=== PATIENT | male | born 1950 | race Caucasian/White ===

== ENCOUNTER → 2018-07-14 | Outpatient (CLI) | payer OTHER, MEDICARE ==
[~2018-07-14] MED LIST: ASPI-482 PO; CHOL500016 PO; CRESTOR10 MG PO; DULA1.5P SQ; FINA5TAB4 PO; FLUT100D IH; GABA300C18 PO; GLIM4TAB2 PO; INSU100I32 SQ; LEVO50TA5 PO; LISI-338 PO; MAGN400C PO; METF10007 PO; MULT1TAB52 PO; PANT40TA77 PO; RAMI10CA53 PO; SITA1TAB11 PO; TAMS0.4C2 PO; TAMS0.4C97 PO
--- NOTE | 2018-07-14 09:17 | KCIC ---
MRI of the lumbar spine without contrast 07/14/2018 CLINICAL HISTORY: Chronic low back pain. Bilateral leg numbness. TECHNIQUE: Unenhanced T1-weighted, T2-weighted and inversion recovery sagittal and T1-weighted and T2-weighted axial images of the lumbar spine were obtained. FINDINGS: Minimal S-shaped curvature of the thoracolumbar spine is seen. Degenerative signal changes are seen involving the L2-3, L3-4, L4-5 and L5-S1 discs. Degenerative signal changes are seen within the marrow surrounding these discs. A 1.3 cm hemangioma is seen involving the L2 vertebral body. The conus medullaris is normal morphology, position, and signal characteristics. The L1-2 disc space is within normal limits. At the L2-3 disc space there is a mild generalized disc bulge. Superimposed on this disc bulge is a focal central disc protrusion. This measures 2 mm in AP diameter. Degenerative changes are seen involving the facet joints bilaterally. There is mild ligamentum flavum hypertrophy bilaterally. These findings when combined do not result in significant central spinal canal or neural foraminal stenosis. At the L3-4 disc space there is a mild to moderate generalized disc bulge. Superimposed on this disc bulge is a left paracentral disc osteophyte complex. This measures 4 mm in AP diameter. Degenerative changes are seen involving the facet joints bilaterally. There is mild ligamentum flavum hypertrophy bilaterally. There is prominence of the posterior epidural fat. These findings when combined result in mild central spinal canal stenosis. Mild left neural foraminal stenosis is seen. The right neural foramen is patent. At the L4-5 disc space there is a mild to moderate generalized disc bulge. This is eccentric to the right. Degenerative changes are seen involving the facet joints, right greater than left. There are small facet joint effusions. Mild ligamentum flavum hypertrophy is seen bilaterally. There is prominence of the posterior epidural fat. These findings when combined result in mild central spinal canal stenosis. Moderate to severe right neural foraminal stenosis is seen. The left neural foramen is patent. At the L5-S1 disc space there is a mild to moderate generalized disc bulge. This is eccentric to the left. Degenerative changes are seen involving the facet joints bilaterally. These findings when combined do not result in significant central spinal canal or neural foraminal stenosis. IMPRESSION: The changes of degenerative disc disease are seen throughout the lumbar spine. These findings result in mild central spinal canal stenosis at L3-4 and L4-5. Mild left neural foraminal stenosis is seen at L3-4. Moderate to severe right neural foraminal stenosis is seen at L4-5. Electronically signed by: Jose Cano MD (07/14/2018 9:13 AM) [email or web address]
== END | disposition home or self-care (01) ==
LOC: KCIC MRI 08:14
PROVIDERS: ATTEND Physician Assistant Medical
DX: M51.36 Other intervertebral disc degeneration, lumbar region (principal); M48.061 Spinal stenosis, lumbar region without neurogenic claudication; M47.816 Spondylosis without myelopathy or radiculopathy, lumbar region; M25.78 Osteophyte, vertebrae
CPT/HCPCS: 72148

== ENCOUNTER → 2018-08-21 | Outpatient (CLI) | payer OTHER, MEDICARE ==
[~2018-08-21] MED LIST changes: +PANT40TA5 PO; -PANT40TA77 PO; -TAMS0.4C97 PO
--- NOTE | 2018-08-21 10:37 | KCIC ---
MRI of the cervical spine without contrast 08/21/2018 CLINICAL HISTORY: Neck pain with bilateral leg numbness and unsteady gait. TECHNIQUE: Unenhanced T1-weighted, T2-weighted and inversion recovery sagittal and gradient echo and T2-weighted axial images of the cervical spine were obtained. FINDINGS: There is straightening of the normal cervical lordosis. Degenerative signal changes are seen involving all of the disks of the cervical spine. Loss of height of the C5-6 and C6-7 discs is noted. Degenerative signal changes are seen within the marrow surrounding these discs. No area of abnormal signal intensity is seen involving the cervical spinal cord. At the C2-3 disc space there is a minimal generalized disc bulge. Degenerative changes are seen involving the uncovertebral and facet joints, right greater than left. These findings when combined do not result in significant central spinal canal or neural foraminal stenosis. At the C3-4 disc space there is a mild generalized disc bulge. Degenerative changes are seen involving the uncovertebral and facet joints, right greater than left. These findings do not result in significant central spinal canal stenosis. Mild right neural foraminal stenosis is seen. The left neural foramen is patent. At the C4-5 disc space there is a mild generalized disc bulge. Degenerative changes are seen involving the uncovertebral and facet joints, left greater than right. These findings when combined do not result in significant central spinal canal stenosis no neural foraminal stenosis is seen. At the C5-6 disc space there is a mild to moderate generalized disc bulge. Superimposed on this disc bulge is a focal central disc protrusion. This measures 3 mm in AP diameter. Degenerative changes are seen involving the uncovertebral and facet joints, right greater than left. These findings when combined efface the anterior CSF resulting in mild central spinal canal stenosis without evidence of cord impingement. Mild to moderate right neural foraminal stenosis is seen. The left neural foramen is patent. At the C6-7 disc space there is a mild to moderate generalized disc bulge. This is eccentric to the left. Degenerative changes are seen involving the uncovertebral and facet joints, left greater than right. These findings when combined efface the anterior CSF resulting in mild central spinal canal stenosis without evidence of cord impingement. Moderate left neural foraminal stenosis is seen. The right neural foramen is patent. At the C7-T1 disc space there is a minimal generalized disc bulge. Degenerative changes are seen involving the facet joints bilaterally. These findings do not result in significant central spinal canal or neural foraminal stenosis. IMPRESSION: Degenerative changes are seen involving the cervical spine. These findings result in mild central spinal canal stenosis at C5-6 and C6-7 without evidence of cord impingement. Mild right neural foraminal stenosis is seen at C3-4. Mild to moderate right neural foraminal stenosis is seen at C5-6. Moderate left neural foraminal stenosis is seen at C6-7. Electronically signed by: Jose Cano MD (08/21/2018 10:35 AM) [email or web address]
== END | disposition home or self-care (01) ==
LOC: KCIC MRI 08:55
PROVIDERS: ATTEND Neurological Surgery
DX: M47.892 Other spondylosis, cervical region (principal); M48.02 Spinal stenosis, cervical region; M50.222 Other cervical disc displacement at C5-C6 level
CPT/HCPCS: 72141

== ENCOUNTER → 2018-08-27 | Outpatient (CLI) | payer OTHER, MEDICARE ==
--- NOTE | 2018-08-27 22:09 | PAIN ---
DATE OF SERVICE: 08/27/2018 CHIEF COMPLAINT: Low back pain. HISTORY OF PRESENT ILLNESS: The patient is a 68-year-old male who presents with history of pain for about 8 years in the low back itself, occasionally spreading into the posterior gluteus, but generally not radiating to the lower extremities, just in the back itself. The patient reports it is worse with standing, walking, especially sitting for prolonged periods, changing positions, bending backwards or extending in his spine. The patient reports it awakens him from sleep at least twice a night, does not affect his bowel or bladder control, but does affect his ability to walk. He feels unstable and uses a cane occasionally, but does not have it with him today. The patient reports he has had physical therapy in the past, chiropractic treatment as well. He is using an inversion table currently and some traction techniques at home also, some traction devices he got from the Physical Therapy office about a month ago with a rotational stool that he sits on which helps the back pain temporarily. The patient has also tried prednisone, which does decrease the pain, but increase his blood sugar significantly. Also, ibuprofen and he has had some epidural injections many years ago, which were not significantly helpful. The patient reports his disability rate from 0-10, 10 being the worst, at 9 with family and home responsibilities and sexual behavior; 10 with recreation, social activity and occupation behavior; 3 with self-care and 0 with life support activities. The patient did have an MRI scan of the lumbar spine showing advanced degenerative disk disease throughout the lumbar spine with mild central spinal canal stenosis at L3-L4 and L4-L5 with mild left neural foraminal stenosis at L3-L4 and [id number] right neural foraminal stenosis at L4-L5. The patient reports no loss of motor function, but significant fatigability in both of the lower extremities with ambulation especially and with sitting for long periods, greater than 15-20 minutes. The patient also reports he supports his body with his arms on the kitchen counter to get the pressure off his low back and this helps the back as well. The patient reports it is much worse with extension of the lumbar spine and axial loading in the low back, better with forward flexion; right and left lateral rotation is moderately tender bilaterally in each direction in the lower back again with no radiation to the lower extremities. PAST MEDICAL HISTORY: Significant for hearing loss, diabetes type 2, COPD, sleep apnea, hypertension, gastroesophageal reflux, headaches, dizziness, depression, arthritis. PREVIOUS SURGERY: Include bilateral shoulder surgery, tonsillectomy, carpal tunnel release on the right, sinus surgery, wisdom teeth extraction and a torn Achilles, which did not require surgery in the past. CURRENT MEDICATIONS: Include daily baby aspirin, ramipril, metformin, glimepiride, levothyroxine, pantoprazole, Crestor, finasteride and tamsulosin. ALLERGIES: The patient has no known drug allergies. FAMILY HISTORY: Significant for heart disease. SOCIAL HISTORY: The patient does not drink alcohol; does not smoke; does not use any illegal, illicit or recreational drugs. He is and lives with his spouse, lives locally in [place], [place] and is currently retired. REVIEW OF SYSTEMS: The patient's review of systems is positive for those items mentioned in history of present illness. All systems reviewed and otherwise negative. It is complete, full and well documented on the patient's chart. PHYSICAL EXAMINATION: VITAL SIGNS: The patient's blood pressure is 136/88, pulse 79, respirations 16, temperature 98.2 degrees Fahrenheit, height is 5 feet 11-3/4 inches and weight is 245 pounds. GENERAL: The patient is awake, alert, oriented, appropriate, very pleasant demeanor. HEENT: Head is normocephalic and atraumatic. Extraocular movements are intact and symmetrical. Oral cavity: Mucous membranes moist and pink. Dentition is intact. NECK: Shows anterior throat supple without palpable lymphadenopathy noted. Swallow reflex symmetrical. CHEST: Shows normal with inspection. Breath sounds clear to auscultation bilaterally. HEART: Shows S1, S2 clear. No murmurs auscultated. ABDOMEN: Soft, obese, nontender, nondistended. No palpable organomegaly is noted. No rebound or guarding demonstrated. BACK: Shows spine grossly in the midline, normal-appearing cervical lordotic curvature, thoracic kyphotic curvature and lumbar lordotic curvature. Lumbar paraspinous muscle shows symmetrical on inspection; on palpation shows some moderate tenderness throughout the upper, middle, lower distribution of paraspinous muscles, but only diffusely without radiation. The patient shows no tenderness over the sacrum or sacroiliac regions or the spinous processes. The patient has good rotational motion of lumbar spine with moderate tenderness with right and left lateral rotation past 10 degrees with significant tenderness with extension of the lumbar spine and axial loading low back 10 degrees, forward flexion 45 degrees decreases his pain moderately, but not completely and is performed without difficulty. EXTREMITIES: The patient's lower extremities show deep tendon reflexes at 2+ in the patellar, 1+ tendo calcaneus tendons. Motor exam is strong with 5/5 dorsiflexion and extension, quadriceps and hamstring flexion and symmetrical. Peripheral pulses are 1+ posterior tibia. No peripheral edema is noted bilaterally. Straight leg raise noted to be negative for reproduction of radicular symptoms. Gaenslen's and Wilfred's maneuvers are negative bilaterally as well. The patient is able to stand, stand on his toes and has some difficulty getting up from seated position secondary to pain in the low back with axial loading of the lumbar spine once again. The patient is walking with a slight shuffling gait, does not appear to favor the right or left lower extremity significantly, not using any assistive devices currently, but does use a cane he reports at home. SKIN: Warm and dry, good turgor. No edema. No sores, rashes or bruising. IMPRESSION: This is a 68-year-old male with: 1. Long history of 8 years of low back pain increased with axial loading and pressure in the low back consistent with lumbar facet syndrome pain. 2. Hypertension. 3. Diabetes. 4. Arthritis. 5. Chronic obstructive pulmonary disease. PLAN: Options were discussed with the patient and the patient's spouse who accompanied him to his visit today including conservative medical management, continued physical therapy, interventional techniques and he is doing physical therapy already and doing exercises on his own as well as using an inversion table and traction techniques. He would like to pursue interventional techniques. We discussed lumbar facet joint injections using description as well as anatomical models to describe the procedure. We will wait for preauthorization from the patient's insurance provider. The patient would like to proceed with this. In the meantime, he will maintain with stretching and strengthening exercises and traction with inversion table and stretching techniques as well. The patient will return to clinic once approved. We will plan on bilateral L4-L5 and L5-S1 facet joint injections at that time. MADISON FONSECA MD DR: VARINDER/dylan JOB#: [id number] / [id number]
== END | disposition home or self-care (01) ==
LOC: PNCL 07:49
PROVIDERS: ATTEND Anesthesiology
DX: M51.36 Other intervertebral disc degeneration, lumbar region (principal); M48.061 Spinal stenosis, lumbar region without neurogenic claudication; E11.9 Type 2 diabetes mellitus without complications; J44.9 Chronic obstructive pulmonary disease, unspecified; G47.33 Obstructive sleep apnea (adult) (pediatric); I10 Essential (primary) hypertension; K21.9 Gastro-esophageal reflux disease without esophagitis; F41.8 Other specified anxiety disorders; Z82.49 Family history of ischemic heart disease and other diseases of the circulatory system
CPT/HCPCS: G0463

== ENCOUNTER → 2018-09-10 | Outpatient (CLI) | payer OTHER, MEDICARE ==
[~2018-09-10] MED LIST changes: +BUPIVACAINE MPF 0.25% 10 ML VIAL. ONE; +IOHEXOL 180 MG/ML 10 ML VIAL. ONE; +methylPREDNISolone ACETATE 40 MG/ML VIAL. ONE; +methylPREDNISolone ACETATE 80 MG/ML VIAL. ONE
--- NOTE | 2018-09-10 23:46 | PAIN ---
DATE OF SERVICE: 09/10/2018 DIAGNOSES: 1. Lumbar spondylosis and lumbosacral spondylosis. 2. Lumbar spinal stenosis and lumbar degenerative disk disease. HISTORY OF PRESENT ILLNESS: The patient is a 68-year-old male who returns for followup status post initial evaluation and preauthorization for bilateral lumbar facet joint injections. The patient has obtained this now and would like to proceed. The patient reports still pain across the low back, worse on the right than the left, but worse with walking, standing, change in positions, especially extension of the lumbar spine, aching, sharp at times, shooting at times into the bilateral gluteus. The patient reports it is an 8 on scale of 10 at its worst, 8 on average, 3 at its least and is an 8 today. The patient reports it does not awaken him from sleep, generally sleeps about 7-8 hours a night, better with sitting or lying down, but worse with walking, standing, especially with extension or when he first gets up in the morning, putting weight on his back. The patient reports no new motor or sensory deficits, no new bowel or bladder incontinence or other complaints. PHYSICAL EXAMINATION: VITAL SIGNS: The patient's blood pressure is 140/79, pulse 75, respirations 16, temperature 97.7 degrees Fahrenheit, height is 5 feet 11 inches, weighs 241 pounds. GENERAL: The patient is awake, alert, oriented, appropriate, very pleasant demeanor. HEENT: Head is normocephalic, atraumatic. Extraocular movements are intact and symmetrical. Oral cavity: Mucous membranes moist and pink. Dentition is intact. NECK: Shows anterior throat supple without palpable lymphadenopathy noted. Swallow reflex symmetrical. CHEST: Shows normal on inspection. Breath sounds clear to auscultation bilaterally. HEART: Shows S1, S2 clear. No murmurs auscultated. ABDOMEN: Soft, nontender, nondistended. No palpable organomegaly is noted. No rebound or guarding demonstrated. BACK: Shows spine grossly in the midline. Normal appearing thoracic kyphosis and some minor flattening of lumbar lordotic curvature. Lumbar paraspinous muscle shows symmetrical on inspection, on palpation shows some moderate tenderness in the low lumbar distribution bilaterally, but without significant radiation. The patient shows good rotational motion of lumbar spine, although significant tenderness with extension as well as right greater than left lateral rotation past 10 degrees. No significant pain with forward flexion at 45 degrees. EXTREMITIES: The patient's lower extremities show deep tendon reflexes 2+ in the patellar, 1+ tendo calcaneus tendons. Motor exam is strong with 5/5 dorsiflexion, extension, quadriceps and hamstring flexion is symmetrical. Peripheral pulses are 1+ posterior tibial. No peripheral edema is noted bilaterally. Options were discussed with the patient. The patient's old chart was reviewed as his current medication regimen updated. Current review of systems updated today as well. We will proceed with bilateral L4-L5 and L5-S1 facet joint injection today with fluoroscopic guidance. Risks were again discussed including, but not limited to bleeding, infection, possibility of epidural hematoma, subsequent neurological compromise, dural punctures, headaches, spinal cord and/or nerve damage, side effects of steroid medication and poor results regarding pain control. The patient understands and wished to proceed. The patient will return to clinic in approximately 2 weeks for followup. He was counseled on return appointment, activity level and side effects to be aware of. DIAGNOSES: Lumbar and lumbosacral spondylosis. PROCEDURE: Bilateral L4-L5 and L5-S1 facet joint injections under C-arm fluoroscopic guidance using sterile prep and drape with local anesthetic. MEDICATION INJECTED: A total of 120 mg Depo-Medrol plus total of 4 mL of 0.25% bupivacaine, a total of 2 mL of Isovue for contrast. CONDITION AT DISCHARGE: Stable. The patient tolerated the procedure well, had no complications. MADISON FONSECA MD DR: VARINDER/dylan JOB#: [id number] / [id number]
== END | disposition home or self-care (01) ==
LOC: PNCL 07:46
PROVIDERS: ATTEND Anesthesiology
DX: M47.817 Spondylosis without myelopathy or radiculopathy, lumbosacral region (principal); M51.36 Other intervertebral disc degeneration, lumbar region; M48.061 Spinal stenosis, lumbar region without neurogenic claudication
CPT/HCPCS: 64493; 64494; J1030; J1040; J3490; Q9965

== ENCOUNTER → 2018-09-24 | Outpatient (CLI) | payer OTHER, MEDICARE ==
[~2018-09-24] MED LIST changes: -BUPIVACAINE MPF 0.25% 10 ML VIAL. ONE; -IOHEXOL 180 MG/ML 10 ML VIAL. ONE; -methylPREDNISolone ACETATE 40 MG/ML VIAL. ONE; -methylPREDNISolone ACETATE 80 MG/ML VIAL. ONE
--- NOTE | 2018-09-24 23:13 | PAIN ---
DATE OF SERVICE: 09/24/2018 DIAGNOSIS: Lumbar and lumbosacral spondylosis with lumbar spinal stenosis and lumbar degenerative disk disease. HISTORY OF PRESENT ILLNESS: The patient is a 68-year-old male who returns for followup status post lumbar facet joint injection at L4-L5 and L5-S1 bilaterally. The patient returns reporting about 75% improvement initially for about the first week to week and a half, then about 50% improvement, still maintaining. The patient reports still the right side is worse than the left, but present bilaterally and the pain is returning now with activity, especially with extension of the lumbar spine and axial loading of the low back is the main complaint. Also, some right lateral rotation exacerbates the pain more than the left. The patient reports it is 8 on a scale of 10 at its worst, 5 on average, 2 at its least and is 2 today. The patient reports it is sharp, tight, cramping, tingling, worse with rotational movement, worse with prolonged sitting, prolonged standing, better with lying down, but does awaken him from sleep at night when she lies on his right side. The patient reports no new motor or sensory deficits. He was ambulating better, doing greater distances walking, doing household activities and traveling easier until the last week or so when the pain began to return, but again still about 50% improved overall. The patient reports no new motor or sensory deficits, no new bowel or bladder incontinence or other complaints. PHYSICAL EXAMINATION: VITAL SIGNS: The patient's blood pressure is 129/72, pulse 66, respirations 16, temperature is 98.0 degrees Fahrenheit, height is 5 feet 11 inches, weight is 243 pounds. GENERAL: The patient is awake, alert, oriented, appropriate, very pleasant demeanor. HEENT: Head is normocephalic, atraumatic. Extraocular movements intact and symmetrical. Oral cavity: Mucous membranes moist and pink. Dentition is intact. NECK: Shows anterior throat supple without palpable lymphadenopathy noted. Swallow reflex is symmetrical. CHEST: Shows normal on inspection. Breath sounds are clear to auscultation bilaterally. HEART: Shows S1, S2 clear. No murmurs auscultated. ABDOMEN: Soft, nontender, nondistended. No palpable organomegaly is noted. No rebound or guarding demonstrated. He is obese. BACK: Shows spine grossly in the midline. Normal-appearing thoracic kyphosis and lumbar lordotic curvature. Lumbar paraspinous muscle shows symmetrical on inspection, with palpation shows some moderate tenderness diffusely bilaterally, but only diffusely without radiation. The patient has good rotational motion with some moderate tenderness with right lateral rotation past 10 degrees as well as extension and axial loading, significant tenderness, more on the right than the left, but present bilaterally. This is decreased to a fair extent with forward flexion at 45 degrees, left lateral rotation at 10 degrees is moderately tender as well. EXTREMITIES: The patient's lower extremities show deep tendon reflexes 2+ in patellar and 1+ tendo calcaneus tendons. Motor exam is strong with 5/5 dorsiflexion and extension, quadricep and hamstring flexion equal as well. Peripheral pulses are 1+ posterior tibial. No peripheral edema is noted bilaterally. Options were discussed with the patient. The patient's old chart was reviewed as was his current medication regimen updated. Current review of systems updated today as well. We will proceed with preauthorization for additional L4-L5 and L5-S1 facet joint injections bilaterally. The patient did very well after the first set of injections with about 75% improvement for the first week and a half and now about 50% improvement overall until today which has been about 2 weeks ago. The patient will continue to do some strengthening and stretching exercises of the low back and extremities maintain activity as tolerated. We will have the patient return in approximately 1 week and plan on a repeat L4-L5 and L5-S1 facet joint injections at that time. MADISON FONSECA MD DR: VARINDER/dylan JOB#: [id number] / [id number]
--- NOTE | 2018-09-30 18:48 | PAIN ---
DATE OF SERVICE: 09/24/2018 DIAGNOSES: Lumbar and lumbosacral spondylosis, lumbar spinal stenosis, lumbar degenerative disk disease. HISTORY OF PRESENT ILLNESS: This is a 68-year-old male who returns for followup status post lumbar facet joint injection L4-L5 and L5-S1 bilaterally. The patient returns reporting about 85% improvement initially for about the first week to week and a half, then about 50% improvement, still maintaining that improvement. The patient reports still the right side is worse than the left, present bilaterally and the pain is returning now with activity, especially with extension of the lumbar spine and axial loading in the low back is the main complaint. The patient reports some right lateral rotation exacerbates the pain more than left, but it is an 8 on a scale of 10 at its worst, 5 on average, 2 at its least and is a 2 today. The patient reports it is sharp, tight, cramping, tingling, worse with rotational movement, worse with prolonged sitting, standing and better with lying down. The patient reports no new motor or sensory deficits. He was ambulating better, doing greater distances walking, household activities, traveling easier until the last week or so when the pain began to return. The patient reports no new deficits. PHYSICAL EXAMINATION: VITAL SIGNS: The patient's blood pressure is 129/72, pulse 66, respirations 16, temperature 98.0 degrees Fahrenheit, height is 5 feet 11 inches, weight is 243 pounds. GENERAL: The patient is awake, alert, oriented, appropriate, very pleasant demeanor. HEENT: Shows normocephalic, atraumatic. Extraocular movements are intact and symmetrical. Oral cavity: Mucous membranes moist and pink. NECK: Shows anterior throat supple without palpable lymphadenopathy noted. CHEST: Shows breath sounds clear to auscultation bilaterally. HEART: Shows S1, S2 clear. No murmurs auscultated. ABDOMEN: Soft, nontender, nondistended. No palpable organomegaly is noted. BACK: Shows spine grossly in the midline. Normal appearing thoracic kyphosis and lumbar lordotic curvature. Lumbar paraspinous muscle shows normal on inspection. On palpation shows some moderate tenderness diffusely bilaterally, but only diffusely without radiation. The patient has good rotational motion with some moderate tenderness in the right lateral rotation past 10 degrees as well as extension. Significant tenderness with axial loading, more on the right than the left, but present bilaterally, decreased with forward flexion 45 degrees to a moderate extent. Left lateral rotation is moderately tender as well past 10 degrees. EXTREMITIES: The patient's lower extremities show deep tendon reflexes 2+ in the patellar and 1+ tendo calcaneus tendons. Motor exam remain strong with 5/5 dorsiflexion, extension, quadriceps and hamstring flexion and equal. Peripheral pulses are 1+ bilaterally. No peripheral edema is detected. Options were discussed with the patient. The patient's old chart was reviewed as his current medication regimen updated. Current review of systems is updated today as well and we will preauthorize the patient for additional L4-L5 and L5-S1 facet joint injections as patient did very well with the first set of injection about 85% improvement for the first week and now returning as noted. The patient will continue to do strengthening and stretching exercises on his own low back and extremities, maintain activity as tolerated, walking daily as well. I will have the patient return in 1 week and plan on repeat L4-L5 and L5-S1 facet joint injections on return. MADISON FONSECA MD DR: VARINDER/dylan JOB#: [id number] / [id number]
== END | disposition home or self-care (01) ==
LOC: PNCL 07:53
PROVIDERS: ATTEND Anesthesiology
DX: M47.897 Other spondylosis, lumbosacral region (principal); M47.896 Other spondylosis, lumbar region; M48.061 Spinal stenosis, lumbar region without neurogenic claudication; M51.36 Other intervertebral disc degeneration, lumbar region
CPT/HCPCS: G0463

== ENCOUNTER → 2018-10-08 | Outpatient (CLI) | payer OTHER, MEDICARE ==
--- NOTE | 2018-10-08 14:05 | RAD ---
AP and lateral views of the pelvis Clinical indications: Evaluate for foreign body of the urethra/prostate. FINDINGS: Vascular calcifications are seen within the pelvis. No radiopaque foreign body is evident. Osseous structures appear intact. No significant fecal retention is seen within the rectosigmoid region. IMPRESSION: No radiopaque foreign body. Electronically signed by: Eliot Mosher MD (10/08/2018 2:02 PM) [facility]
== END | disposition home or self-care (01) ==
LOC: RAD 10:21
PROVIDERS: ATTEND Urology
DX: Z03.89 Encounter for observation for other suspected diseases and conditions ruled out (principal); I70.8 Atherosclerosis of other arteries
CPT/HCPCS: 72170

== ENCOUNTER → 2018-10-30 | Outpatient (CLI) | payer OTHER, MEDICARE ==
[~2018-10-30] MED LIST changes: +BUPIVACAINE MPF 0.25% 10 ML VIAL. ONE; +IOHEXOL 180 MG/ML 10 ML VIAL. ONE; +methylPREDNISolone ACETATE 40 MG/ML VIAL. ONE; +methylPREDNISolone ACETATE 80 MG/ML VIAL. ONE
--- NOTE | 2018-10-31 00:25 | PAIN ---
DATE OF SERVICE: 10/30/2018 PROGRESS NOTE FOR PAIN CLINIC DIAGNOSIS: Lumbar degenerative disk disease with lumbar spinal stenosis and lumbar and lumbosacral spondylosis. HISTORY OF PRESENT ILLNESS: The patient is a 68-year-old male who returns for followup status post bilateral facet joint injections, L4-L5 and L5-S1 with good results, about 70% improvement, initially pain returning and this in August that he had this first done on after preauthorization with his insurance provider for repeat diagnostic injections. He returns today, still pain in the low back bilaterally, somewhat worse on the right than the left, but present bilaterally without radiation to the lower extremities. The patient reports it is 5 on a scale of 10 at its worst, 5 on average, 3 at its least and is 5 today. The patient reports it is aching, sharp, shooting across the low back, worse with standing, walking, especially with extension of the lumbar spine and axial loading of the lumbar vertebrae in the low lumbar distribution. The patient reports pain with flexion and right and left lateral rotation as well, but not with forward flexion. The patient reports no new motor or sensory deficits, no new bowel or bladder incontinence. Again, did quite well for about 4-5 days after the first injections, would like to try second diagnostic block in preparation for potential radiofrequency ablation in the future. The patient reports it awakens him from sleep occasionally, usually better with sitting or lying down, but worse with standing and extension of the spine. PHYSICAL EXAMINATION: VITAL SIGNS: Today, the blood pressure is 147/91, pulse 76, respirations 18, temperature 98.2 degrees Fahrenheit, height is 5 feet 11 inches, weighs 248 pounds. GENERAL: The patient is awake, alert, oriented, appropriate, very pleasant demeanor. HEENT: Head is normocephalic, atraumatic. Extraocular movements are intact, symmetrical. Oral cavity: Mucous membranes moist and pink. Dentition is intact. NECK: Shows anterior throat supple without palpable lymphadenopathy noted. Swallow reflex symmetrical. CHEST: Shows normal on inspection. Breath sounds clear to auscultation bilaterally. HEART: Shows S1, S2 clear. No murmurs auscultated. ABDOMEN: Soft, nontender, nondistended. No palpable organomegaly is noted. No rebound or guarding demonstrated. BACK: Shows spine grossly in the midline. Normal-appearing thoracic kyphosis and lumbar lordotic curvature. Lumbar paraspinous muscle shows symmetrical on inspection; palpation shows some moderate tenderness diffusely bilaterally without radiation. The patient shows good rotational motion with some moderate tenderness, more to the right than the left with greater than 10 degrees with lateral rotation, extension 10 degrees shows significant tenderness in the low back, again worse on the right than the left, but present bilaterally. This is decreased with forward flexion at 45 degrees. EXTREMITIES: The patient's lower extremities show deep tendon reflexes 2+ in the patellar, 1+ tendo-calcaneus tendons. Motor exam is strong with 5/5 dorsiflexion, extension, quadriceps and hamstring flexion symmetrical. Distal pulses are 1+ posterior tibia. No peripheral edema is noted. Options were discussed with the patient. The patient's old chart was reviewed as was his current medication regimen updated. Current review of systems updated today as well. We will proceed with repeat bilateral L4-L5 and L5-S1 facet joint injections today with fluoroscopic guidance. Risks were again discussed including, but not limited to bleeding, infection, possibility of epidural hematoma, subsequent neurological compromise, dural punctures, headaches, spinal cord and/or nerve damage, side effects of steroid medication and poor results regarding pain control. The patient understands and wished to proceed. The patient will return to clinic in approximately 2 weeks for followup, was counseled as to return appointment, activity level and side effects to be aware of. DIAGNOSES: Lumbar and lumbosacral spondylosis. PROCEDURE: Lumbar bilateral L4-L5 and L5-S1 facet joint injections using C-arm fluoroscopic guidance under sterile prep and drape using local anesthetic. MEDICATION INJECTED: A total of 120 mg Depo-Medrol plus 4 mL total of 0.25% bupivacaine and 2 mL total of contrast. CONDITION AT DISCHARGE: Stable. The patient tolerated the procedure well, had no complications. MADISON FONSECA MD DR: VARINDER/dylan JOB#: [id number] / [id number]
== END | disposition home or self-care (01) ==
LOC: PNCL 07:57
PROVIDERS: ATTEND Anesthesiology
DX: M47.817 Spondylosis without myelopathy or radiculopathy, lumbosacral region (principal); M48.061 Spinal stenosis, lumbar region without neurogenic claudication; M51.36 Other intervertebral disc degeneration, lumbar region
CPT/HCPCS: 64493; 64494; J1030; J1040; J3490; Q9965

== ENCOUNTER → 2018-11-13 | Outpatient (CLI) | payer OTHER, MEDICARE ==
[~2018-11-13] MED LIST changes: -BUPIVACAINE MPF 0.25% 10 ML VIAL. ONE; -IOHEXOL 180 MG/ML 10 ML VIAL. ONE; -methylPREDNISolone ACETATE 40 MG/ML VIAL. ONE; -methylPREDNISolone ACETATE 80 MG/ML VIAL. ONE
--- NOTE | 2018-11-14 00:45 | PAIN ---
DATE OF SERVICE: 11/13/2018 DIAGNOSES: Lumbar degenerative disk disease with lumbar spinal stenosis and lumbosacral spondylosis. HISTORY OF PRESENT ILLNESS: The patient is a 68-year-old male who returns for followup status post bilateral L4-L5 and L5-S1 facet joint injections. The patient reports he did very well, about 95% improvement and has been over two weeks with significant improvement. The patient reports it took a day or two for the pain to decrease, but now, it has been over two weeks and he has had about 95% improvement in the pain, increased activity with greater ease and comfort, sleeping better at night, walking better, feels like he is more stable. The patient has been increasing his activity with greater ease and comfort. No new motor or sensory deficits, no new changes. The patient rates his pain as a 2 on a scale of 10 at its absolute worst, a 1 at the average and zero at its least and is a zero today. The patient reports it is aching and dull, across the low back at times when it is bothering him, but nothing into the lower extremities. The patient reports no new motor or sensory deficits, no bowel or bladder incontinence or other complaints. PHYSICAL EXAMINATION: VITAL SIGNS: The patient's blood pressure is 136/47, pulse 67, respirations are 18, temperature is 98.2 degrees Fahrenheit. The patient's height is 5 feet 11 inches and weight is 243 pounds. GENERAL: The patient is awake, alert, oriented, appropriate, very pleasant demeanor. HEENT: Head shows normocephalic, atraumatic. Extraocular movements intact and symmetrical. Oral cavity: Mucous membranes moist and pink. Dentition is intact. NECK: Shows anterior throat supple without palpable lymphadenopathy noted. Swallow reflex is symmetrical. CHEST: Shows normal on inspection. Breath sounds clear to auscultation bilaterally. HEART: Shows S1, S2 clear. No murmurs auscultated. ABDOMEN: Obese but soft, nontender, nondistended. No palpable organomegaly is noted. No rebound or guarding demonstrated. BACK: Shows spine grossly in the midline. Normal appearing thoracic kyphosis and lumbar lordotic curvature. Lumbar paraspinous musculature shows symmetrical on inspection, on palpation shows some moderate tenderness diffusely, but only diffusely bilaterally in the low and mid lumbar distribution without radiation. The patient's back shows good rotation of motion with some moderate tenderness with lateral rotation to the right greater than the left, greater than 10 degrees, only very mild, ____ with extension and with some axial loading of lumbar spine, which has increased with extension greater than 10 degrees with pain bilaterally in the low back itself. EXTREMITIES: The patient's lower extremities show deep tendon reflexes at 2+ in the patellar, 1+ tendo-calcaneus tendons. The patient's lower extremity pulses show 1+ posterior tibia. No peripheral edema is noted. Motor exam is strong with 5/5 dorsiflexion and extension. Options were discussed with the patient. The patient's old chart was reviewed as his current medication regimen and updated. Current review of systems is updated today as well. We will preauthorize the patient for additional lumbar facet joint injections, L4-L5 and L5-S1 levels bilaterally. The patient did very well with about two weeks' improvement, more of 95%, decreased pain but the pain returning now in the low back especially with axial loading and extension of the lumbar spine, better with forward flexion and present bilaterally without radiation to the lower extremities. The patient will continue doing stretching and strengthening exercises, also doing some traction maneuvers at home as well and will maintain this. We did discuss potential radiofrequency ablation in the future, but he would like to see how additional repeat diagnostic blocks do first. We will make those arrangements and have the patient return once authorization is obtained for repeat bilateral L4-L5 and L5-S1 facet joint injections. MADISON FONSECA MD DR: VARINDER/dylan JOB#: [id number] / [id number]
== END | disposition home or self-care (01) ==
LOC: PNCL 07:57
PROVIDERS: ATTEND Anesthesiology
DX: M51.36 Other intervertebral disc degeneration, lumbar region (principal); M48.061 Spinal stenosis, lumbar region without neurogenic claudication; M47.817 Spondylosis without myelopathy or radiculopathy, lumbosacral region
CPT/HCPCS: G0463

== ENCOUNTER → 2018-12-18 | Outpatient (CLI) | payer OTHER, MEDICARE ==
[~2018-12-18] MED LIST changes: +TAMS0.4C97 PO
--- NOTE | 2018-12-18 09:35 | PAIN ---
DATE OF SERVICE: 12/18/2018 DIAGNOSES: Lumbar degenerative disk disease, lumbar spinal stenosis, lumbar and lumbosacral spondylosis and lumbar radiculopathy. HISTORY OF PRESENT ILLNESS: The patient is a 68-year-old male who returns for followup status post bilateral facet joint injections at L4-L5 and L5-S1 x2, with about 90% improvement for the first week or so after the injection. The patient has done quite well and never lasting, and he wanted to try the third injection; however, this was not approved with his insurance provider. He is now reporting that the pain has changed in that the pain is now radiating to the right lower extremity, mostly in the posterior gluteus, lateral thigh, lateral anterior thigh, medial thigh, medial calf on the right side, becoming more noticeable with walking, standing, changing positions, better with sitting or lying down, does not awaken him from sleep at night, but much worse with standing, walking or sitting for a prolonged period. The patient reports it is 8 on a scale of 10 at its worst on the past week, 7 on average, 5 at its least and is a 7 today. The patient reported it is sharp and shooting, stabbing, constant and more radiating, which initially was just in the small of his back, he still has pain in the small of the back, but is radiating to the right lower extremity significantly now with activity. The patient reports no new motor or sensory deficits, no new bowel or bladder incontinence or other complaints. PHYSICAL EXAMINATION: VITAL SIGNS: The patient's blood pressure is 130/78, pulse 73, respirations are 20, temperature 97.9 degrees Fahrenheit, height is 5 feet 11 inches, weight is 242 pounds. GENERAL: The patient is awake, alert, oriented, appropriate, very pleasant demeanor. HEENT: Head is normocephalic, atraumatic. The patient wears eyeglasses. Extraocular movements intact and symmetrical. Oral cavity: Mucous membranes moist and pink. Dentition is intact. NECK: Shows anterior throat supple without palpable lymphadenopathy noted. Swallow reflex symmetrical. CHEST: Shows normal with inspection. Breath sounds clear to auscultation bilaterally. HEART: Shows S1, S2 clear. No murmurs auscultated. ABDOMEN: Soft, nontender, nondistended. No palpable organomegaly is noted. No rebound or guarding demonstrated. BACK: Shows spine grossly in the midline. Normal appearing thoracic kyphosis and flattening of lumbar lordotic curvature. Lumbar paraspinous muscle shows symmetrical on inspection. On palpation some moderate tenderness diffusely bilaterally in the low lumbar distribution. The patient has good rotational motion with some moderate tenderness with right and left lateral rotation at 10 degrees as well, increased pain with rearward extension and axial loading of the lumbar spine, better with forward flexion at 45 degrees. EXTREMITIES: Lower extremities show deep tendon reflexes 2+ in patella and 1+ in the tendocalcaneous tendons. Motor exam is strong with 5/5 dorsiflexion, extension, quadriceps and hamstring flexion. He does have mild straight leg raise, which is positive now, which is new on this exam at about 40 degrees, which is decreased with knee flexion, left side is negative. Gaenslen and Wilfred maneuvers are negative bilaterally. Peripheral pulses are 1+ posterior tibial. No peripheral edema is noted. Options were discussed with the patient. The patient's old chart was reviewed as his current medication regimen updated. Current review of systems updated today as well. We will preauthorize the patient for a lumbar epidural steroid injection as he has significant radicular pain in the L4-5 dermatomal distribution on the right, but review of his MRI scan showing at L4-L5 level generalized disk bulge eccentric to the right, with [id number] right neural foraminal stenosis and mild central spinal canal stenosis at that level as well. The patient was given Medrol Dosepak in the meantime with instructions, side effects to be aware of discussed. The patient will return to clinic in approximately 2 weeks. We will plan on lumbar epidural steroid injection at that time. The patient will continue with using his inversion table at home as well as doing strengthening and stretching exercises as he has been doing and maintain his activities. We will have him return and plan on lumbar epidural steroid injection at that time. MADISON FONSECA MD DR: VARINDER/dylan JOB#: [id number] / [id number]
== END | disposition home or self-care (01) ==
LOC: PNCL 07:22
PROVIDERS: ATTEND Anesthesiology
DX: M51.16 Intervertebral disc disorders with radiculopathy, lumbar region (principal); M48.061 Spinal stenosis, lumbar region without neurogenic claudication; M47.27 Other spondylosis with radiculopathy, lumbosacral region
CPT/HCPCS: G0463

== ENCOUNTER → 2018-12-31 | Outpatient (CLI) | payer OTHER, MEDICARE ==
[~2018-12-31] MED LIST changes: +IOHEXOL 180 MG/ML 10 ML VIAL. ONE; -PANT40TA5 PO; +PANT40TA77 PO; +methylPREDNISolone ACETATE 40 MG/ML VIAL. ONE; +methylPREDNISolone ACETATE 80 MG/ML VIAL. ONE
--- NOTE | 2018-12-31 08:42 | PAIN ---
DATE OF SERVICE: 12/31/2018 DIAGNOSES: Lumbar degenerative disk disease, lumbar spinal stenosis, lumbar radiculopathy and lumbar spondylosis. HISTORY OF PRESENT ILLNESS: The patient is a 68-year-old male who returns for followup status post lumbar facet joint injections x 2 with limited decrease in pain only for about 1-2 weeks about 90% improvement, but pain is radiating into his right lower extremity across the low back into the right posterior gluteus, posterolateral thigh, lateral anterior thigh, medial thigh and medial calf. The patient reports it is aching, sharp, shooting, burning, cramping, on and off in intensity. We waited for preauthorization with insurance provider, which is obtained and now would like to proceed with a lumbar epidural steroid injection today that we discussed on his last visit. The patient reports the pain is 8 on a scale of 10 at its worst in the past week, 6 on average, 4 at its least and is a 4 today. The patient reports walking is the worse pain, standing also, but better with sitting or lying down, does not awaken him from sleep at night. The patient describes the pain as shooting and sharp in the leg as well on the right side only. PHYSICAL EXAMINATION: VITAL SIGNS: The patient's blood pressure 141/76, pulse 73, respirations 16, temperature is 98.1 degrees Fahrenheit, height is 5 feet 11 inches and weight is 243 pounds. GENERAL: The patient is awake, alert, oriented, appropriate, very pleasant demeanor. HEENT: Shows normocephalic, atraumatic. Extraocular movements intact and symmetrical. Oral cavity: Mucous membranes moist and pink. Dentition is intact. NECK: Shows anterior throat supple without palpable lymphadenopathy noted. Swallow reflex is symmetrical. CHEST: Shows normal on inspection. Breath sounds are clear to auscultation bilaterally. HEART: Shows S1, S2 clear. No murmurs auscultated. ABDOMEN: Soft, nontender, nondistended. No palpable organomegaly is noted. No rebound or guarding demonstrated. BACK: Shows spine grossly in the midline. Normal appearing thoracic kyphosis and lumbar lordotic curvature. Lumbar paraspinous muscle shows symmetrical on inspection. On palpation shows some moderate tenderness diffusely, but only diffusely without radiation. The patient has good rotational motion of lumbar spine. EXTREMITIES: Lower extremities show deep tendon reflexes 2+ in the patellar, 1+ tendo-calcaneus tendons. Motor exam is strong and equal 5/5 dorsiflexion, extension, quadriceps and hamstring flexion. Peripheral pulses are 1+ posterior tibial. No peripheral edema is noted. Options were discussed with the patient. The patient's old chart was reviewed as his current medication regimen updated. Current review of systems updated today as well. We will proceed with a lumbar epidural steroid injection today with fluoroscopic guidance. Risks were again discussed including, but not limited to bleeding, infection, possibility of epidural hematoma, subsequent neurologic compromise, dural puncture, headaches, spinal cord and/or nerve damage, side effects of steroid medication and poor results regarding pain control. The patient understands and wished to proceed. The patient will return to clinic in approximately 2 weeks for followup, was counseled on return appointment, activity level and side effects to be aware of. DIAGNOSES: Lumbar radiculopathy with lumbar spinal stenosis, lumbar degenerative disk disease, lumbar spondylosis. PROCEDURE: Lumbar epidural steroid injection, translaminar approach at L4-L5 level using C-arm fluoroscopic guidance under sterile prep and drape using local anesthetic. MEDICATIONS INJECTED: A total of 120 mg Depo-Medrol plus 10 mL of preservative-free normal saline and 2 mL of contrast. CONDITION AT DISCHARGE: Stable. The patient tolerated procedure well, had no complications. MADISON FONSECA MD DR: VARINDER/dylan JOB#: [id number] / [id number]
== END ==
LOC: PNCL 08:37
PROVIDERS: ATTEND Anesthesiology
DX: M51.16 Intervertebral disc disorders with radiculopathy, lumbar region (principal); M48.061 Spinal stenosis, lumbar region without neurogenic claudication; M47.816 Spondylosis without myelopathy or radiculopathy, lumbar region
CPT/HCPCS: 62323; J1030; J1040; Q9965

== ENCOUNTER → 2019-01-22 | Outpatient (CLI) | payer OTHER, MEDICARE ==
[~2019-01-22] MED LIST changes: -IOHEXOL 180 MG/ML 10 ML VIAL. ONE; -methylPREDNISolone ACETATE 40 MG/ML VIAL. ONE; -methylPREDNISolone ACETATE 80 MG/ML VIAL. ONE
--- NOTE | 2019-01-22 09:16 | PAIN ---
DATE OF SERVICE: 01/22/2019 PROGRESS NOTE FOR PAIN CLINIC DIAGNOSES: Lumbar radiculopathy with lumbar degenerative disk disease, lumbar spinal stenosis and spondylosis. HISTORY OF PRESENT ILLNESS: The patient is a 68-year-old male who returns for followup status post lumbar epidural steroid injection x 1. The patient reports about 85% improvement for the first 3 weeks following the injection. Over the past week has been beginning to return in the low back and in the right lower extremity, mostly in the posterior gluteus, lateral thigh, lateral anterior thigh, medial thigh, medial lower leg, worse with walking, standing, changing positions, better with sitting or lying down, does not awaken him from sleep at night. The patient reports he is doing much better, increased his activity, walking and doing work activities, working on his tractor and household activity as well as traveling with greater ease and comfort with sitting. The patient reports now the pain is a 7 on a scale of 10 at its worst in the past week, 3 on average, 2 at its least and is a 3 today. The patient reports it is aching, sharp, and shooting, sometimes severe with walking and standing. The patient reports no new motor or sensory deficits, no new bowel or bladder incontinence or other complaints. PHYSICAL EXAMINATION: VITAL SIGNS: The patient's blood pressure 140/90, pulse 68, respirations 18, temperature 98.2 degrees Fahrenheit, height is 5 feet 11 inches, weight is 241 pounds. GENERAL: The patient is awake, alert, oriented, appropriate, very pleasant demeanor. HEENT: Head is normocephalic, atraumatic. Extraocular movements intact and symmetrical. Oral cavity: Mucous membranes moist and pink. Dentition is intact. NECK: Shows anterior throat supple without palpable lymphadenopathy noted. Swallow reflex is symmetrical. CHEST: Shows normal on inspection. Breath sounds clear to auscultation bilaterally. HEART: Shows S1, S2 clear. No murmurs auscultated. ABDOMEN: Soft, nontender, nondistended. No palpable organomegaly is noted. No rebound or guarding demonstrated. BACK: Shows spine grossly in the midline. Normal appearing thoracic kyphosis and minor flattening of lumbar lordotic curvature. Lumbar paraspinous muscle shows symmetrical on inspection, on palpation shows some moderate tenderness diffusely bilaterally, but only diffusely without radiation. EXTREMITIES: The patient's lower extremities show deep tendon reflexes 2+ in the patellar, 1+ tendo-calcaneus tendons. Motor exam is strong with 5/5 dorsiflexion, extension, quadriceps and hamstring flexion. Peripheral pulses are 1+ posterior tibial. No peripheral edema is noted bilaterally. Options were discussed with the patient. The patient's old chart was reviewed as well as his current medication regimen updated. Current review of systems updated today as well. We will proceed with preauthorization for a second lumbar epidural steroid injection. The patient still has clinical radiculopathy, L4-L5 dermatomal distribution on the right, did very well after the first injection, pain returning now. We will preauthorize the patient for a second lumbar epidural steroid injection at L4-L5 level via transforaminal or translaminar approach. Once authorization is obtained, the patient will return. We will plan on second lumbar epidural steroid injection at that time. MADISON FONSECA MD DR: VARINDER/dylan JOB#: [id number] / [id number]
== END | disposition home or self-care (01) ==
LOC: PNCL 07:51
PROVIDERS: ATTEND Anesthesiology
DX: M51.16 Intervertebral disc disorders with radiculopathy, lumbar region (principal); M47.26 Other spondylosis with radiculopathy, lumbar region; M48.061 Spinal stenosis, lumbar region without neurogenic claudication
CPT/HCPCS: G0463

== ENCOUNTER → 2019-01-28 | Outpatient (CLI) | payer OTHER, MEDICARE ==
[~2019-01-28] MED LIST changes: +IOHEXOL 180 MG/ML 10 ML VIAL. ONE; +methylPREDNISolone ACETATE 40 MG/ML VIAL. ONE; +methylPREDNISolone ACETATE 80 MG/ML VIAL. ONE
--- NOTE | 2019-01-28 09:26 | PAIN ---
DATE OF SERVICE: 01/28/2019 BRIEF PROGRESS NOTE FOR PAIN CLINIC PREOPERATIVE DIAGNOSES: Lumbar radiculopathy with lumbar degenerative disk disease, lumbar spinal stenosis and lumbar spondylosis. HISTORY OF PRESENT ILLNESS: The patient is a 68-year-old male who returns for followup status post lumbar epidural steroid injection x 1. The patient did very well with about 85% improvement. Pain is returning now in the low back, more on the right lower extremity than the left, posterior gluteus, lateral thigh, anterior thigh, medial thigh on the right and across the low back. The patient reports it is a 7 on a scale of 10. Its worst in the past week, 5 on average and 3 at its least and is a 5 today. The patient reports it is aching, sharp, tight and shooting. The patient reports no new motor or sensory deficits, no new bowel or bladder incontinence or other complaints. PHYSICAL EXAMINATION: VITAL SIGNS: The patient's blood pressure 146/91, pulse 73, respirations 18, temperature 98.2 degrees Fahrenheit. Height is 5 feet 11 inches and weight is 241 pounds. GENERAL: The patient is awake, alert, oriented, appropriate, very pleasant demeanor. HEENT: Shows normocephalic, atraumatic. Extraocular movements are intact and symmetrical. Oral cavity: Mucous membranes are moist and pink. Dentition is intact. NECK: Shows anterior throat supple without palpable lymphadenopathy noted. Swallow reflex symmetrical. CHEST: Shows normal on inspection. Breath sounds are clear bilaterally. HEART: Shows S1, S2 clear. No murmurs auscultated. ABDOMEN: Soft, nontender, nondistended. No palpable organomegaly is noted. No rebound or guarding demonstrated. BACK: Shows spine grossly in the midline. Normal appearing thoracic kyphosis. Lumbar lordotic curvature is slightly flattened. Lumbar paraspinous muscle shows symmetrical on inspection. On palpation, some moderate tenderness diffusely, but only diffusely without radiation bilaterally. The patient shows good rotational motion of the lumbar spine without difficulty as well. EXTREMITIES: Lower extremities show deep tendon reflexes at 2+ in the patellar, 1+ tendo-calcaneus tendons. Motor exam is strong with 5/5 dorsiflexion, extension, quadriceps and hamstring flexion and are symmetrical. Peripheral pulses are 1+ posterior tibia. No peripheral edema is noted. Options were discussed with the patient. The patient's old chart was reviewed. His current medication regimen updated. Current review of systems updated today as well. We will proceed with a second in a series of lumbar epidural steroid injection today with fluoroscopic guidance. Risks were again discussed including, but not limited to, bleeding, infection, possibility of epidural hematoma, subsequent neurological compromise, dural puncture, headaches, spinal cord and/or nerve damage, side effects of steroid medication and poor results regarding pain control. The patient understands and wished to proceed. The patient will return to clinic in approximately 2 weeks for followup, was counseled on return appointment, activity level and side effects to be aware of. DIAGNOSES: Lumbar radiculopathy with lumbar degenerative disk disease, lumbar spinal stenosis. PROCEDURE: Lumbar epidural steroid injection, translaminar approach at the L4-L5 level using C-arm fluoroscopic guidance under sterile prep and drape using local anesthetic. MEDICATION INJECTED: Total of 120 mg Depo-Medrol plus 10 mL of preservative-free normal saline and 2 mL of contrast. CONDITION AT DISCHARGE: Stable. The patient tolerated the procedure well, had no complications. MADISON FONSECA MD DR: VARINDER/dylan JOB#: [id number] / [id number]
== END ==
LOC: PNCL 07:25
PROVIDERS: ATTEND Anesthesiology
DX: M51.16 Intervertebral disc disorders with radiculopathy, lumbar region (principal); M48.061 Spinal stenosis, lumbar region without neurogenic claudication; M47.816 Spondylosis without myelopathy or radiculopathy, lumbar region
CPT/HCPCS: 62323; J1030; J1040; Q9965

== ENCOUNTER → 2019-02-11 | Outpatient (CLI) | payer OTHER, MEDICARE ==
[~2019-02-11] MED LIST changes: -IOHEXOL 180 MG/ML 10 ML VIAL. ONE; -methylPREDNISolone ACETATE 40 MG/ML VIAL. ONE; -methylPREDNISolone ACETATE 80 MG/ML VIAL. ONE
--- NOTE | 2019-02-11 09:38 | PAIN ---
DATE OF SERVICE: 02/11/2019 PROGRESS NOTE TO PAIN CLINIC DIAGNOSES: Lumbar radiculopathy with lumbar degenerative disk disease, lumbar spinal stenosis and lumbar spondylosis. HISTORY OF PRESENT ILLNESS: The patient is a 68-year-old male who returns for followup status post lumbar epidural steroid injection x 1. The patient reports about 90% improvement in his low back and right lower extremity. The patient reports still hanging on still becoming more noticeable and radiating into the right lower extremity at the lateral aspect of the thigh, posterior gluteus and medial anterior thigh anteriorly, as well as the medial lower leg, but much improved. The patient will increase his activity, walking, doing work activities, driving his tractor more comfortably, traveling with greater ease and comfort and driving, sitting for longer periods. The patient reports it awakens him from sleep very rarely, usually sleeps about 7-8 hours without difficulty and is quite pleased with his progress thus far. The patient reports still some pain in the low back and right leg as noted, rated as a 3 on a scale of 10 at its worst in the past week, 2 on average, 1 at its least and is a 2 today. The patient reports it is aching and burning, constant and sometimes tingling in the right leg as well, but only rarely. The patient reports no new motor or sensory deficit. Says does have some cramps in his calves, but otherwise doing fairly well. No new motor or sensory deficits. PHYSICAL EXAMINATION: VITAL SIGNS: The patient's blood pressure is 126/65, pulse 85, respirations 16, temperature 98.5 degrees Fahrenheit, height is 5 feet 11 inches and weight is 240 pounds. GENERAL: The patient is awake, alert, oriented, appropriate, very pleasant demeanor. The patient is accompanied by his spouse. HEENT: Head shows normocephalic, atraumatic. Extraocular movements are intact and symmetrical. The patient is wearing eyeglasses. Oral cavity: Mucous membranes moist and pink. Dentition is intact. NECK: Shows anterior throat supple without palpable lymphadenopathy noted. Swallow reflex is symmetrical. CHEST: Shows normal on inspection. Breath sounds are clear to auscultation bilaterally. HEART: Shows S1, S2 clear. No murmurs auscultated. ABDOMEN: Soft, nontender, nondistended. No palpable organomegaly is noted. BACK: Shows spine grossly in the midline. Normal appearing thoracic kyphosis and minor flattening of lumbar lordotic curvature. Lumbar paraspinous muscle shows symmetrical on inspection, on palpation shows some moderate tenderness diffusely in the middle and lower distribution of paraspinous muscles, but only diffusely without radiation. No tenderness over the spinous processes, sacrum or sacroiliac regions. The patient has good rotational motion both laterally greater than 10 degrees right and left as well as extension greater than 10 degrees, forward flexion 45 degrees without difficulty in the lumbar spine. EXTREMITIES: The patient's lower extremities show deep tendon reflexes 2+ in the patellar, 1+ tendo-calcaneus tendons. Motor exam is strong with 5/5 dorsiflexion, extension and equal. Peripheral pulses are 1+ posterior tibia. No peripheral edema is noted. Options were discussed with the patient. The patient's old chart was reviewed as his current medication regimen updated. Current review of systems updated today as well. We will proceed with preauthorization for a third lumbar epidural steroid injection. The patient is getting progressively better with each of these and had 90% improvement after his last injection. Still with a clinical radiculopathy at L4-L5 dermatomal distribution on the right. We will plan on lumbar translaminar approach at L4-L5 level for a third epidural steroid injection. The patient will continue with stretching and strengthening exercises, walking daily, will return for lumbar epidural steroid injection in approximately 1 week as scheduled. MADISON FONSECA MD DR: VARINDER/dylan JOB#: [id number] / [id number]
== END | disposition home or self-care (01) ==
LOC: PNCL 07:56
PROVIDERS: ATTEND Anesthesiology
DX: M51.16 Intervertebral disc disorders with radiculopathy, lumbar region (principal); M48.061 Spinal stenosis, lumbar region without neurogenic claudication; M47.26 Other spondylosis with radiculopathy, lumbar region
CPT/HCPCS: G0463

== ENCOUNTER → 2019-03-03 | Outpatient (CLI) | payer OTHER, MEDICARE ==
[~2019-03-03] MED LIST changes: +IOHEXOL 180 MG/ML 10 ML VIAL. ONE; +methylPREDNISolone ACETATE 40 MG/ML VIAL. ONE; +methylPREDNISolone ACETATE 80 MG/ML VIAL. ONE
--- NOTE | 2019-03-03 09:35 | PAIN ---
DATE OF SERVICE: 03/03/2019 PROGRESS NOTE FOR PAIN CLINIC DIAGNOSES: Lumbar radiculopathy with lumbar degenerative disk disease and lumbar spinal stenosis and spondylosis. HISTORY OF PRESENT ILLNESS: The patient is a 68-year-old male, who returns for followup status post lumbar epidural steroid injection x 2. The patient reports about 90% improvement after the second injection and was waiting for preauthorization from his insurance provider. He has obtained that now. Still some pain across the low back, right greater than left, in the right posterolateral thigh, anterior thigh, medial thigh and in the left posterior thigh as well as bilaterally in the low back. The patient reports it is worse with walking, standing and changing positions. The patient reports it is a 4 on a scale of 10 at its worst in the past week, 3 on an average, 1 at its least, and is a 1 today. The patient reports it is aching, dull at times again in the back, radiating to the right lower extremity, some in the left, on and off in intensity, again worse with activity, walking, standing, changing positions, although he has been more active since his last visit, distance walking, doing work activities, household activities with greater ease and comfort, sleeping well at night, does not awaken him from sleep. PHYSICAL EXAMINATION: VITAL SIGNS: The patient's blood pressure 162/81, pulse 73, respirations 18, temperature 97.8 degrees Fahrenheit. Height is 5 feet 11 inches, weight is 237 pounds. GENERAL: The patient is awake, alert, oriented, appropriate, very pleasant demeanor. HEENT: Head is normocephalic, atraumatic. Extraocular movements are intact and symmetrical. Oral cavity: Mucous membranes moist and pink; dentition is intact. NECK: Shows anterior throat supple without palpable lymphadenopathy noted. Swallow reflex symmetrical. CHEST: Shows normal on inspection. Breath sounds clear to auscultation bilaterally. HEART: Shows S1, S2 clear. No murmurs auscultated. ABDOMEN: Soft, nontender and nondistended. No palpable organomegaly is noted. No rebound or guarding demonstrated. BACK: Shows spine grossly in the midline. Normal-appearing thoracic kyphosis and lumbar lordotic curvature. Lumbar paraspinous muscle shows symmetrical on inspection, with palpation shows some moderate tenderness diffusely bilaterally, but only diffusely without radiation. EXTREMITIES: The patient's lower extremities show deep tendon reflexes are 2+ in the patellar and 1+ in the tendo-calcaneus tendons. Motor exam is 5/5 with dorsiflexion, extension, quadriceps and hamstring flexion and symmetrical. Peripheral pulses are 1+ posterior tibial. No peripheral edema is noted bilaterally. Options were discussed with the patient. The patient's old chart was reviewed as his current medication regimen updated. Current review of systems updated today as well. We will proceed with a third in the series of lumbar epidural steroid injection today with fluoroscopic guidance. Risks were again discussed including, but not limited to bleeding, infection, possibility of epidural hematoma, subsequent neurologic compromise, dural puncture, headaches, spinal cord and/or nerve damage, side effects of steroid medication and poor results regarding pain control. The patient understands and wishes to proceed. The patient will return to clinic in approximately 2 weeks for followup. He was counseled on return appointment, activity level and side effects to be aware of. DIAGNOSES: Lumbar radiculopathy with lumbar degenerative disk disease, lumbar spinal stenosis. PROCEDURE: Lumbar epidural steroid injection, translaminar approach, L4-L5 level, using C-arm fluoroscopic guidance under sterile prep and drape using local anesthetic. MEDICATIONS INJECTED: A total of 120 mg Depo-Medrol plus 10 mL of preservative-free normal saline and 2 mL of contrast. CONDITION AT DISCHARGE: Stable. The patient tolerated procedure well, had no complications. MADISON FONSECA MD DR: VARINDER/dylan JOB#: [id number] / [id number]
== END ==
LOC: PNCL 08:05
PROVIDERS: ATTEND Anesthesiology
DX: M51.16 Intervertebral disc disorders with radiculopathy, lumbar region (principal); M48.061 Spinal stenosis, lumbar region without neurogenic claudication; M47.816 Spondylosis without myelopathy or radiculopathy, lumbar region
CPT/HCPCS: 62323; J1030; J1040; Q9965

== ENCOUNTER → 2019-04-15 | Outpatient (CLI) | payer OTHER, MEDICARE ==
[~2019-04-15] MED LIST changes: +BUPIVACAINE MPF 0.25% 10 ML VIAL. ONE; -GLIM4TAB2 PO; +GLIM4TAB4 PO; -IOHEXOL 180 MG/ML 10 ML VIAL. ONE; -methylPREDNISolone ACETATE 80 MG/ML VIAL. ONE
--- NOTE | 2019-04-15 11:48 | PAIN ---
DATE OF SERVICE: 04/15/2019 PROGRESS NOTE FOR PAIN CLINIC DIAGNOSES: Lumbar radiculopathy with lumbar degenerative disk disease, lumbar spinal stenosis, lumbar spondylosis, and myofascial pain. HISTORY OF PRESENT ILLNESS: The patient is a 68-year-old male who returns for followup status post lumbar epidural steroid injections x3, most recently 03/03/2019. The patient was about 80% better for the first 2 months following the injections, now has some significant pain and tightness in the low back, worse with stretching, standing, walking, and changing positions. The patient reports it is waking him from sleep about every 6 hours. He can easily reposition and get back to sleep. The pain is reported as a 9 on a scale of 10 at its worst, 9 on average, 7 at its least over the past week. The patient describes it as stabbing, aching, sharp, shooting, constant, becoming more severe, started traveling into the lower extremities, mostly staying in the low back. The patient reports when he applies pressure on his low back, he has a device at home, which he has been leaning on and putting pressure on the low back and does actually feel better. He has not tried any heat applications or any specific stretching at this time. The patient reports no new motor or sensory deficits. No bowel or bladder incontinence or other complaints. PHYSICAL EXAMINATION: VITAL SIGNS: The patient's blood pressure 150/85, pulse 66, respirations 18, temperature 98.1 degrees Fahrenheit, height is 5 feet 11 inches, weight is 240 pounds. GENERAL: The patient is awake, alert, oriented, appropriate, very pleasant demeanor. The patient is accompanied by his spouse. HEENT: Head shows normocephalic, atraumatic. Extraocular movements are intact and symmetrical. The patient is wearing eyeglasses. Oral cavity: Mucous membranes moist and pink. Dentition is intact. NECK: Shows anterior throat supple. BACK: Shows spine grossly in the midline. Normal appearing thoracic kyphosis and lumbar lordotic curvature. Lumbar paraspinous muscle shows symmetrical on inspection, on palpation shows some moderate tenderness diffusely throughout the thoracic and lumbar paraspinous musculature bilaterally with very firm rope-like musculature bilaterally with palpation without specific radiation, but significant tenderness with palpation, but without asymmetry. It is very firm rope-like musculature consistent with trigger point areas of musculature noted bilaterally. Thoracic paraspinous muscles as well in the low distribution and into the upper, middle, and lower distribution of the lumbar paraspinous musculature, also into the superior medial gluteus more on the left than the right, again without specific radiation, very firm rope-like musculature. The patient shows good rotational motion of lumbar spine, both laterally as well as extension and flexion without significant increase in pain. EXTREMITIES: Lower extremities show deep tendon reflexes 2+ in the patellar, 1+ tendo-calcaneus tendons. Motor exam is 5/5 with dorsiflexion, extension, quadriceps, and hamstring flexion. Peripheral pulses are 1+ posterior tibia. No peripheral edema is noted bilaterally. CHEST: Shows normal on inspection. Breath sounds clear to auscultation bilaterally. HEART: Shows S1, S2 clear. ABDOMEN: Soft, nontender. PLAN: Options were discussed with the patient. The patient's old chart was reviewed as his current medication regimen updated. Current review of systems updated today as well. We will proceed with trigger point injections of the identified musculature. Risks were again discussed including, but not limited to bleeding, infection, possibility of intravascular injection sequelae, spread of local anesthetic and numbness, side effects of steroid medication including increased glucose levels and poor results regarding pain control. The patient understands and wished to proceed. The patient will return to clinic in approximately 4 weeks for followup. He was counseled on return appointment in level and side effects to be aware of. DIAGNOSIS: Myofascial pain. PROCEDURE: Trigger point injections, bilateral thoracic paraspinous musculature, bilateral lumbar paraspinous musculature, bilateral gluteus musculature under sterile prep and drape using local anesthetic. MEDICATION INJECTED: A total of 40 mg Depo-Medrol plus total of 8 mL of 0.25% bupivacaine after negative aspiration at each injection site. CONDITION AT DISCHARGE: Stable. The patient tolerated the procedure well, had no complications. MADISON FONSECA MD DR: VARINDER/dylan JOB#: [id number] / [id number]
== END ==
LOC: PNCL 07:34
PROVIDERS: ATTEND Anesthesiology
DX: M79.18 Myalgia, other site (principal); M48.061 Spinal stenosis, lumbar region without neurogenic claudication; M47.26 Other spondylosis with radiculopathy, lumbar region; M51.36 Other intervertebral disc degeneration, lumbar region
CPT/HCPCS: 20553; J1030; J3490

== ENCOUNTER 2021-01-27 09:18 | Emergency (ER) | payer MEDICARE, OTHER ==
[~2021-01-27] VITALS: Ht 180.3 cm; Wt 113.6 kg
[~2021-01-27 09:18] MED LIST changes: -BUPIVACAINE MPF 0.25% 10 ML VIAL. ONE; -FLUT100D IH; +FLUT100D2 IH; -GLIM4TAB4 PO; +GLIM4TAB8 PO; -LISI-338 PO; +LISI-517 PO; +MULT-445 PO; -MULT1TAB52 PO; -methylPREDNISolone ACETATE 40 MG/ML VIAL. ONE
[2021-01-27] MEDS ORDERED: LIDOCAINE 2% JELLY 6ML IN APPLICATOR. MM ONE (10:00)
[2021-01-27 10:31] LABS: BILIRUBIN,URINE NEGATIVE (NEG); CLARITY,URINE CLEAR; COLOR,URINE YELLOW; NITRITE,URINE POSITIVE (NEG); PH,URINE 6.5 (<5.0-8.0); PROTEIN,URINE 30 mg/dL (NEG-TRACE); UROBILINOGEN,URINE 0.2 mg/dL (0.2 mg/dL)
[2021-01-27 10:37] VITALS: BP 135/65
[2021-01-27 10:45] LABS: BACTERIA,URINE MANY /HPF (0-FEW)
[2021-01-27 10:47] LABS: SPERM,URINE PRESENT /HPF
--- NOTE | 2021-01-27 13:09 | PHYS DOC ---
Past Medical History Past Medical History: Diabetes-Type II, GERD, Hypertension, Prostatitis Past Surgical History: Other Additional Past Surgical Histo: BACK SURGERY 2019 Smoking Status: Former Smoker Alcohol Use: None General Adult EDM: Chief Complaint: URINARY RETENTION HPI: HPI: 70-year-old male past medical history of hypertension, COPD/former smoker, GERD, BPH on Flomax and type 2 diabetes, presents the ED with complaints of inability to urinate for the past 2 days "only a few drops" with associated lower abdominal pain stating "it's never been this bad." Denies any history of prostatitis despite EMR reported history of prostatitis. Does report he is on Flomax daily by Kimmy South his PCP but that his "PSA" levels are low. Also reports associated fatigue and weakness, requiring (at bedside, (patient consents to his/her/their knowledge and involvement in pts' medical care), to assist in moving pt to the restroom. Patient reports chronic back pain, no new back pain, associated fever, nausea, vomiting, flank pain or flulike symptoms. Review of Systems: Review of Systems: Constitutional: Denies fever or chills. [] Eyes: Denies change in visual acuity. [] HENT: Denies nasal congestion or sore throat. [] Respiratory: Denies cough or shortness of breath. [] Cardiovascular: Denies chest pain or edema. [] GI: Denies nausea, vomiting, bloody stools or diarrhea. [] : Denies genital rash or urethral discharge Musculoskeletal: Denies new back pain or joint pain. [] Integument: Denies desquamation or blistering lesions Neurologic: Denies headache, neck pain, focal weakness or sensory changes. [] Endocrine: Denies polyuria or polydipsia. [] Lymphatic: Denies swollen glands. [] Psychiatric: Denies depression or anxiety. [] Heart Score: C/O Chest Pain: No Risk Factors: Risk Factors: DM, Current or recent (<one month) smoker, HTN, HLP, family history of CAD, obesity. Risk Scores: Score 0 - 3: 2.5% MACE over next 6 weeks - Discharge Home Score 4 - 6: 20.3% MACE over next 6 weeks - Admit for Clinical Observation Score 7 - 10: 72.7% MACE over next 6 weeks - Early Invasive Strategies Current Medications: Current Medications Medications (Trade) Dose Ordered Sig/Merna Start Time Stop Time Status Last Admin Dose Admin Lidocaine HCl (Glydo (Lidocaine) Jelly) 1 olivia 1X ONCE 01/27/21 10:00 01/27/21 10:01 DC 01/27/21 10:08 1 OLIVIA Allergies: Allergies: Allergies Coded Allergies Type Severity Reaction Last Updated Verified Tetracyclines Adverse Reaction Mild stomach problems 01/28/19 Yes Physical Exam: PE: Constitutional: uncomfortable on arrival, nontoxic appearing, afebrile HENT: Normocephalic, atraumatic, slightly dry mucous membranes Eyes: EOMI, conjunctiva normal, no discharge. Neck: Normal range of motion, supple, Cardiovascular: S1/2 present, HR 98 on arrival Lungs & Thorax: Speaking in full sentences, bilateral equal chest rise, no tachypnea or increased work of breathing Abdomen: soft, obese, no tenderness after placement of Davis catheter Skin: Warm, dry, no erythema, no rash. [] Back: No tenderness, no CVA tenderness. [] Extremities: No tenderness, no cyanosis, Neurologic: Alert and oriented X 3, normal motor function, normal sensory function, no focal deficits noted. [] Psychologic: Affect normal, judgement normal, mood normal-is a sense of humor and is making jokes : no rash, circumcised, no tenderness, per rn bladder scan 900, approximately 1000 dark yellow urine in Davis bag Current Patient Data: Labs: Laboratory Tests Test 01/27/21 10:21 Urine Collection Type Unknown Urine Color Yellow Urine Clarity Clear Urine pH 6.5 (<5.0-8.0) Urine Specific [place] 1.025 (1.000-1.030) Urine Protein 30 mg/dL (NEG-TRACE) Urine Glucose (UA) >=1000 mg/dL (NEG) Urine Ketones (Stick) Trace mg/dL (NEG) Urine Blood Small (NEG) Urine Nitrite Positive (NEG) Urine Bilirubin Negative (NEG) Urine Urobilinogen Dipstick 0.2 mg/dL (0.2 mg/dL) Urine Leukocyte Esterase Negative (NEG) Urine RBC 3-5 /HPF (0-2) Urine WBC 1-4 /HPF (0-4) Urine Squamous Epithelial Cells Few /LPF Urine Bacteria Many /HPF (0-FEW) Urine Mucus Slight /LPF Urine Sperm Present /HPF Vital Signs: Vital Signs Date Time Temp Pulse Resp B/P (MAP) Pulse Ox O2 Delivery O2 Flow Rate FiO2 01/27/21 10:37 91 24 135/65 (88) 91 01/27/21 09:30 99.3 Room Air 99.3 EKG: EKG: [] Radiology/Procedures: Radiology/Procedures: [] Course & Med Decision Making: Course & Med Decision Making Pertinent Labs and Imaging studies reviewed. (See chart for details) Concern for acute urinary tension the setting of nitrite positive UTI. Patient with no new back pain or fever, prostatitis on differential but low suspicion. Patient tolerating oral intake with no nausea or vomiting. I did offer mission for IV antibiotics given patient's weakness and fatigue but feels comfortable taking care of patient at home-both and patient understand strict ED return precautions for fever, flulike symptoms, nausea, vomiting, flank pain, worsening back pain, confusion or altered mental status. Encouraged urgent outpatient follow-up with PMD and urology. Life-threatening processes were considered but are low suspicion at this time, given history, physical exam and ED workup. Pt was educated on all prescription medications and adverse effects. All patient's questions were answered and pt was stable at time of discharge. Life/limb-threatening differential includes but is not limited to, ectopic , septic , sepsis/infection (endometritis, sti/pid, cystitis, pyelonephritis, Greg's gangrene or necrotizing fasciitis, abscess), ovarian torsion, ruptured hemorrhagic ovarian cyst, endometriosis, ureterolithiasis, thrombophlebitis, hemorrhage/DIC, organ prolapse, abdominal aortic aneurysm, mesenteric ischemia, neoplasm, bowel obstruction or surgical abdomen. I have spoken with the patient and/or caregivers. I explained the patient's condition, diagnoses and treatment plan based on the information available to me at this time. I have answered the patient and/or caregiver's questions and addressed any concerns. The patient and/or caregivers have a good understanding of patient's diagnosis, condition and treatment plan as can be expected at this point. Vital signs have been stable. Patient's condition is stable and appropriate for discharge from the emergency department. Patient will pursue further outpatient evaluation with primary care physician or other designated or consulting physician as outlined in the discharge instructions. The patient and/or caregivers are agreeable to this plan of care and follow-up instructions have been explained in detail. The patient and/or c aregivers have received these instructions in written form and have expressed an understanding of the discharge instructions. The patient and/or caregivers are aware that any significant change of condition or worsening of symptoms should prompt immediate return to this or the closest emergency department or call to 911Wood Holder Disclaimer: Glory Disclaimer: This electronic medical record was generated, in whole or in part, using a voice recognition dictation system. Departure Departure Impression: Primary Impression: Acute urinary retention Additional Impression: UTI (urinary tract infection) Disposition: HOME / SELF CARE / HOMELESS Condition: STABLE Referrals: TRAVIS DIAZ APRN (PCP) Within 1 week for Davis removal Patient Instructions: Urinary Retention, Acute, Male, Urinary Tract Infection Additional Instructions: FOLLOW UP WITH UROLOGY: FOR DEFINITIVE MANAGEMENT of urinary retention [facility] [address] [place] [address] [place] [address] [address] [place] [address] [place] [address] [place] [address] EMERGENCY DEPARTMENT GENERAL DISCHARGE INSTRUCTIONS Thank you for coming to [facility] Emergency Department (ED) nazia childers and trusting us with you care. We trust that you had a positive experience in our Emergency Department. If you wish to speak to the department management, you may call the Director at [phone]. YOUR FOLLOW UP INSTRUCTIONS ARE FOLLOWS: 1. Do you have a private Doctor? If you do not have a private doctor, please ask for a resource list of physicians or clinics that may be able to assist you with follow up care. 2. The Emergency Physicain has interpreted your x-rays. The X-Ray specialist will also review them. If there is a change in the findings, you will be notified in 48 hours when at all possible. 3. A lab test or culture has been done, your results will be reviewed and you will be notified if you need a change in treatment. ADDITIONAL INSTRUCTIONS AND INFORMATION: 1. Your care today has been supervised by a physician who is specially trained in emergency care. Many problems require more than one evaluation for a complete diagnosis and treatment. We recommend that you schedule your follow up appointment as recommended to ensure complete treatment of you illness or injury. If you are unable to obtain follow up care and continue to have a problem, or if your condition worsens, we recommend that you return to the ED. 2. We are not able to safely determine your condition over the phone nor are we able to give sound medical advice over the phone. For these safety reasons, if you call for medical advice we will ask you to come to the ED for further evaluation. 3. If you have any questions regarding these discharge instructions please call the ED at [phone]. SAFETY INFORMATION: In the interest of safety, wellness, and injury prevention; we encourage you to wear your sealbelt, if you smoke; quite smoking, and we encourage family to use a protective helmet for bicycling and other sporting events that present an increased risk for head injury. IF YOUR SYMPTOMS WORSEN OR NEW SYMPTOMS DEVELOP, OR YOU HAVE CONCERNS ABOUT YOUR CONDITION; OR IF YOUR CONDITION WORSENS WHILE YOU ARE WAITING FOR YOUR FOLLOW UP APPOINTMENT; EITHER CONTACT YOUR PRIMARY CARE DOCTOR, THE PHYSICIAN WHOSE NAME AND NUMBER YOU WERE GIVEN, OR RETURN TO THE ED IMMEDIATELY. Scripts Tamsulosin Hcl (FLOMAX) 0.4 Mg Cap.er.24h 1 CAP PO DAILY for 14 Days, #14 CAP 0 Refills Prov: KIMMY SANFORD DO 01/27/21 Cefpodoxime Proxetil (CEFPODOXIME PROXETIL) 200 Mg Tablet 1 TAB PO BID for 14 Days, #28 TAB Prov: KIMMY SANFORD DO 01/27/21 KIMMY SANFORD DO Jan 27, 2021 13:09
[2021-01-27] MEDS ORDERED: TAMS0.4C97 PO (13:21)
[2021-01-27] MEDS ORDERED: CEFP200T PO (13:21)
== END 2021-01-27 14:10 | disposition home or self-care (01) ==
LOC: ER 09:18
DX: N39.0 Urinary tract infection, site not specified (principal); N40.1 Benign prostatic hyperplasia with lower urinary tract symptoms; R33.8 Other retention of urine; E11.9 Type 2 diabetes mellitus without complications; K21.9 Gastro-esophageal reflux disease without esophagitis; I10 Essential (primary) hypertension; Z87.891 Personal history of nicotine dependence; J44.9 Chronic obstructive pulmonary disease, unspecified; Z88.1 Allergy status to other antibiotic agents
CPT/HCPCS: 51702; 81001; 87077; 87086; 87186; 99284